=== PATIENT | male | born 1955 | race Hispanic/Latino ===

== ENCOUNTER → 2021-01-10 | Outpatient (CLI) | payer OTHER ==
[~2021-01-10] VITALS: Ht 165.1 cm; Wt 91.6 kg
[~2021-01-10] MED LIST: REGADENOSON 0.4 MG/5 ML PF SYG IVP SCH
== END | disposition home or self-care (01) ==
LOC: SHCH 08:24
PROVIDERS: ATTEND Internal Medicine Cardiovascular Disease
DX: E78.2 Mixed hyperlipidemia (principal); R07.9 Chest pain, unspecified; Z95.1 Presence of aortocoronary bypass graft
CPT/HCPCS: 78452; 93017; 96374; A9500 ×2; J2785

== ENCOUNTER → 2025-01-07 | Outpatient (CLI) | payer OTHER ==
[2025-01-07 21:45] VITALS: PULSE 75; RESP 12
[2025-01-07 22:33] VITALS: PULSE 69; RESP 14
[2025-01-07 23:03] VITALS: PULSE 66; RESP 12
[2025-01-07 23:28] VITALS: PULSE 90; RESP 18
[2025-01-07 23:59] VITALS: PULSE 67; RESP 12
[2025-01-08] VITALS (12 sets, daily range): PULSE 61–74; RESP 13–19
== END | disposition home or self-care (01) ==
LOC: SLP 20:24
PROVIDERS: ATTEND Student in an Organized Health Care Education/Training Program
DX: G47.33 Obstructive sleep apnea (adult) (pediatric) (principal); R06.83 Snoring; R45.1 Restlessness and agitation; F41.9 Anxiety disorder, unspecified; G47.00 Insomnia, unspecified; R35.0 Frequency of micturition; M25.50 Pain in unspecified joint; M54.9 Dorsalgia, unspecified; M54.2 Cervicalgia
CPT/HCPCS: 95811